=== PATIENT | female | born 2000 | race Caucasian/White ===

== ENCOUNTER 2021-12-29 00:54 | Emergency (ER) | payer OTHER ==
[~2021-12-29] VITALS: Ht 172.7 cm; Wt 61.7 kg
[2021-12-29 00:54] VITALS: BP 125/80
--- NOTE | 2021-12-29 00:57 | NUR ---
PT [facility] VOGEL. TAKEN TO BED 11
--- NOTE | 2021-12-29 01:02 | NUR ---
Dr. Alcazar examining patient.
[2021-12-29] MEDS ORDERED: NACL 0.9% 1,000 ML IV ONE (01:05)
[2021-12-29] MEDS ORDERED: ACETAMINOPHEN EXTRA STRENGTH 500 MG TAB PO ONE (01:05)
--- NOTE | 2021-12-29 01:11 | NUR ---
LAB AT BEDSIDE
[2021-12-29 01:21] LABS: BASOPHILS % (AUTO) 0.2 % (0.0-2.0); EOSINOPHILS % (AUTO) 0.2 % (0.0-4.0); HEMATOCRIT 37.6 % (36-48); HEMOGLOBIN 12.6 g/dL (12.0-16.0); LYMPHOCYTES # (AUTO) 1.1 K/uL (2.5-16.5); LYMPHOCYTES % (AUTO) 10.9 % (20.5-51.1); MEAN CORPUSCULAR HEMOGLOBIN 30 pg (27-31); MEAN CORPUSCULAR HGB CONC 34 g/dL (33-37); MONOCYTES # (AUTO) 1.1 K/uL (0.8-1.0); NEUTROPHILS % (AUTO) 77.7 % (42.2-75.2); PLATELET COUNT (AUTO) 195 K/uL (140-450); RED BLOOD CELL COUNT(AUTO) 4.22 MIL/uL (4.20-5.40); RED CELL DISTRIBUTION WIDTH 13.4 % (11.6-13.7); WHITE BLOOD COUNT (AUTO) 10.3 K/uL (4.8-10.8)
[2021-12-29 01:44] LABS: ALBUMIN 3.6 g/dL (3.4-5.0); ANION GAP 13.2 (8-16); CARBON DIOXIDE 27.1 mmol/L (21-32); POTASSIUM 3.3 mmol/L (3.5-5.1); TOTAL BILIRUBIN 0.2 mg/dL (0.0-1.0)
[2021-12-29 02:31] LABS: APPEARANCE,URINE CLEAR (CLEAR); BILIRUBIN,URINE NEGATIVE (NEGATIVE); BLOOD, URINE TRACE-I (NEGATIVE); COLOR,URINE YELLOW (YELLOW); LEUKOCYTE ESTERASE ,URINE NEGATIVE (NEGATIVE); NITRITE, URINE NEGATIVE (NEGATIVE); PH,URINE 6.5 (5.0-9.0); UGLUCOSE NEGATIVE (NEGATIVE)
--- NOTE | 2021-12-29 02:41 | NUR ---
MEDS ADMINISTERED. IV LINE STARTED. THROAT CULTURE OBTAINED AND SENT TO LAB.
[2021-12-29 02:45] LABS: RBC,URINE 0-5 /HPF (0-5); WBC,URINE 0-5 /HPF (0-5)
[2021-12-29] MEDS ORDERED: IBUP-2213 PO (03:48)
[2021-12-29] MEDS ORDERED: ACET-10509 PO (03:48)
[2021-12-29 03:54] VITALS: BP 125/80
--- NOTE | 2021-12-29 03:54 | NUR ---
Patient discharged with v/s stable. Written and verbal after care instructions given and explained. Patient alert, oriented and verbalized understanding of instructions. Ambulatory with steady gait. All questions addressed prior to discharge. ID band removed. Patient advised to follow up with PMD. Rx of ACETAMINOPHEN AND IBUPROFEN given. Patient educated on indication of medication including possible reaction and side effects. Opportunity to ask questions provided and answered.
== END 2021-12-29 03:54 | disposition home or self-care (01) ==
LOC: MED 00:54
DX: B34.9 Viral infection, unspecified (principal); Z79.1 Long term (current) use of non-steroidal anti-inflammatories (NSAID); Z79.899 Other long term (current) drug therapy
CPT/HCPCS: 36415; 80053; 81001; 83605; 85025; 86308; 87040; 87081; 96360; 96361; 99283; J7030